=== PATIENT | male | born 1965 | race African-American/Black ===

== ENCOUNTER 2018-08-08 01:48 | Emergency (ER) | payer MEDICAID ==
[~2018-08-08] VITALS: Ht 182.9 cm; Wt 87.1 kg
[~2018-08-08 01:48] MED LIST: CLINDAMYCIN HC150 MG ORAL; IBUPROFEN600 MG ORAL
[2018-08-08] MEDS ORDERED: NKM (02:04)
[2018-08-08 02:05] VITALS: BP 124/70
[2018-08-08] MEDS ORDERED: Ipratropium 0.02% Inh Soln 2.5ml UD HHN ONE (02:15)
[2018-08-08] MEDS ORDERED: Albuterol ud Inhalation HHN ONE (02:15)
[2018-08-08] MEDS ORDERED: ZITHROMAX250 MG ORAL (03:34)
[2018-08-08] MEDS ORDERED: PROMETHAZINE-C118 M1 ORAL (03:34)
[2018-08-08] MEDS ORDERED: ALBUTEROL SULF8.5 GM INH (03:34)
[2018-08-08 03:40] VITALS: BP 124/70
--- NOTE | 2018-08-08 04:12 | Emergency Room Report ---
History of Present Illness General Chief Complaint: Dyspnea/Respdistress Source: Patient Present Illness HPI 52-year-old male presents ED for evaluation. Patient states that he may have pneumonia. Complaining of cough and congestion for 2 weeks. States that symptoms started after he was working in the rain. States was very cold that day. Had a persistent cough since then. Dry. Trouble with deep breaths. Denies smoking or asthma. Denies sick contacts or recent travel. No other aggravating relieving factors. Denies any other associated symptoms Allergies: Coded Allergies: PENICILLINS (Unverified Allergy, Unknown, 01/28/15) Patient History Past Medical History: none Past Surgical History: none Pertinent Family History: none Social History: Denies: smoking, alcohol use, drug use Immunizations: UTD Reviewed Nursing Documentation: PMH: Agreed; PSxH: Agreed Nursing Documentation-PMH Past Medical History: No Stated History Review of Systems All Other Systems: negative except mentioned in HPI Physical Exam Vital Signs Date Time Temp Pulse Resp B/P (MAP) Pulse Ox O2 Delivery O2 Flow Rate FiO2 08/08/18 01:58 98.8 88 20 124/70 96 Room Air 08/08/18 02:21 21 Sp02 EP Interpretation: reviewed, normal General Appearance: no apparent distress, alert, GCS 15, non-toxic Head: normocephalic Eyes: bilateral eye normal inspection, bilateral eye PERRL ENT: normal ENT inspection Neck: normal inspection Respiratory: decreased breath sounds, crackles Cardiovascular #1: regular rate, rhythm, no edema Gastrointestinal: normal inspection Rectal: deferred Genitourinary: no CVA tenderness Musculoskeletal: normal inspection Neurologic: alert, oriented x3, responsive, motor strength/tone normal, sensory intact, speech normal Psychiatric: normal inspection Skin: normal inspection Lymphatic: normal inspection Medical Decision Making Diagnostic Impression: Primary Impression: Atypical pneumonia ER Course Hospital Course 52-year-old male presents ED complaining of cough x 2 weeks Differential diagnoses include: URI, pharyngitis, otitis media, asthma Clinical course Patient placed on stretcher. After initial history, physical exam reveals a male in no acute distress. Bilateral TM unremarkable. No pharyngeal erythema. No tonsillar exudates. No lymphadenopathy. decreased breath sounds bilaterally I ordered chest x-ray, breathing treatments Chest x-ray shows some atelectasis in lower lung álvarez. No definitive consolidation. Patient feels better after nebulized treatments Presentation consistent with atypical pneumonia. Given presentation, i will prescribe Zpack (allergy to PCN) Safe for discharge and close outpatient follow-up. Patient has his PMD Diagnosis - atypical pneumonia Stable and discharged home with Rx Zpack, albuterol, promethazine/codeine. Instructed to followup with PMD. Return to ED if symptoms recur or worsen Chest X-Ray Diagnostic Results Chest X-Ray Diagnostic Results : Chest X-Ray Ordered: Yes # of Views/Limited/Complete: 1 View Indication: Shortness of Breath EP Interpretation: Yes Interpretation: no consolidation, no pneumothorax, other - bilateral atelectasis Impression: Other - atelectasis Electronically Signed by: Electronically signed by Collin Walters MD Last Vital Signs Date Time Temp Pulse Resp B/P (MAP) Pulse Ox O2 Delivery O2 Flow Rate FiO2 08/08/18 02:44 78 14 100 Room Air 21 08/08/18 02:05 98.7 124/70 Status: improved Disposition: HOME, SELF-CARE Condition: Stable Scripts Codeine/Promethazine Hcl* (PROMETHAZINE-CODEINE SYRUP*) 118 Ml Syrup 5 ML ORAL Q6H PRN for For Cough, #118 ML 0 Refills Prov: Collin Walters MD 08/08/18 Albuterol Sulfate* (ALBUTEROL SULFATE MDI*) 8.5 Gm Hfa.aer.ad 2 PUFF INH Q6H, #1 EA 0 Refills Prov: Collin Walters MD 08/08/18 Azithromycin* (ZITHROMAX*) 250 Mg Tablet 250 MG ORAL DAILY, #6 TAB 0 Refills Take two tables once daily for 1 day, then one tablet once daily for 4 days. Prov: Collin Walters MD 08/08/18 Patient Instructions: Community-Acquired Pneumonia, Adult, [id number] Collin Walters MD Aug 08, 2018 04:12
--- NOTE | 2018-08-08 09:57 | Diagnostic Imaging Report ---
Indication: Cough Technique: One view of the chest Comparison: none Findings: Lungs and pleural spaces are clear. Heart size is normal Impression: No acute process
== END 2018-08-08 03:40 | disposition home or self-care (01) ==
LOC: EMR 02:15
DX: J18.9 Pneumonia, unspecified organism (principal); Z88.0 Allergy status to penicillin
CPT/HCPCS: 71045; 94640; 94664; 99284; J7512

== ENCOUNTER 2019-10-19 00:35 | Emergency (ER) | payer SELFPAY ==
[~2019-10-19] VITALS: Ht 182.9 cm; Wt 87.1 kg
[~2019-10-19 00:35] MED LIST changes: +ALBUTEROL SULF8.5 GM INH; +NKM; +PREDNISONE20 MG ORAL; +PROMETHAZINE-C118 M1 ORAL; +ZITHROMAX250 MG ORAL
[2019-10-19 01:00] VITALS: BP 116/68
--- NOTE | 2019-10-19 01:00 | NUR ---
ED Nurse Note: Pt walked into ED from home for c/o cough and fever x 2 weeks. Pt states cough is now productive with blood and temp of 103.3F noted upon ED triage. Pt is aaox4, breathing is normal and unlabored, no cardiac distress noted.
--- NOTE | 2019-10-19 01:05 | NUR ---
ED Nurse Note: Pt also reports sharp pain in throat associated with cough.
[2019-10-19] MEDS ORDERED: ZITHROMAX250 MG ORAL (01:08)
[2019-10-19] MEDS ORDERED: IBUPROFEN600 MG ORAL (01:08)
[2019-10-19] MEDS ORDERED: PROMETHAZINE-C118 M1 ORAL (01:08)
[2019-10-19 01:15] VITALS: BP 120/85
[2019-10-19] MEDS ORDERED: Azithromycin 250mg tab ORAL ONE (01:15)
--- NOTE | 2019-10-19 01:15 | NUR ---
ER DISCHARGE NOTE: Patient is cleared to be discharged per ERMD, pt is aox4, on room air, with stable vital signs. pt was given dc and prescription instructions, pt was able to verbalize understanding, pt id band removed. pt is able to ambulate with steady gait. pt took all belongings.
--- NOTE | 2019-10-19 02:56 | Emergency Room Report ---
History of Present Illness General Chief Complaint: Fever Source: Patient Present Illness HPI 53-year-old male presents ED for evaluation of cough. States he has had a cough for the last 2 weeks. Productive with greenish phlegm. Notes blood- tinged sputum. Febrile in triage. States that he has been having the symptoms for the last 2 weeks and they have not been resolving with [id number]-zsm-xaazjka medications. States his son has similar symptoms but his symptoms are resolving. Denies recent travel. Vaccinations up-to-date. No other aggravating relieving factors. Denies any other associated symptoms Allergies: Coded Allergies: PENICILLINS (Unverified Allergy, Unknown, 01/28/15) Patient History Past Medical History: none Past Surgical History: none Pertinent Family History: none Social History: Denies: smoking, alcohol use, drug use Immunizations: UTD Reviewed Nursing Documentation: PMH: Agreed; PSxH: Agreed Nursing Documentation-PMH Past Medical History: No Stated History Review of Systems All Other Systems: negative except mentioned in HPI Physical Exam Vital Signs Date Time Temp Pulse Resp B/P (MAP) Pulse Ox O2 Delivery O2 Flow Rate FiO2 10/19/19 00:52 103.3 103 26 116/68 (84) 92 Room Air Sp02 EP Interpretation: reviewed, normal General Appearance: no apparent distress, alert, GCS 15, non-toxic Head: normocephalic, atraumatic Eyes: bilateral eye normal inspection, bilateral eye PERRL ENT: hearing grossly normal, normal pharynx, no angioedema, normal voice Neck: full range of motion, supple/symm/no masses Respiratory: chest non-tender, crackles, speaking full sentences Cardiovascular #1: regular rate, rhythm, no edema Cardiovascular #2: 2+ carotid (R), 2+ carotid (L), 2+ radial (R), 2+ radial (L) , 2+ dorsalis pedis (R), 2+ dorsalis pedis (L) Gastrointestinal: normal bowel sounds, non tender, soft, non-distended, no guarding, no rebound Rectal: deferred Genitourinary: normal inspection, no CVA tenderness Musculoskeletal: back normal, normal range of motion, gait/station normal, non- tender Neurologic: alert, motor strength/tone normal, oriented x3, sensory intact, responsive, speech normal Psychiatric: judgement/insight normal, memory normal, mood/affect normal, no suicidal/homicidal ideation Reflexes: 3+ bicep (R), 3+ bicep (L), 3+ tricep (R), 3+ tricep (L), 3+ knee (R) , 3+ knee (L) Skin: no rash Lymphatic: no adenopathy Medical Decision Making Diagnostic Impression: Primary Impression: Pneumonia Qualified Codes: J18.9 - Pneumonia, unspecified organism ER Course Hospital Course 53-year-old male presents ED complaining of fever and cough x2 weeks Differential diagnoses include: URI, pharyngitis, otitis media, asthma Clinical course Patient placed on stretcher. After initial history, physical exam reveals a male in no acute distress. Bilateral TM unremarkable. No pharyngeal erythema. No tonsillar exudates. No lymphadenopathy. crackles on lung exam vitalsl stable. Patient appears nontoxic. I discussed findings with patient. Concerning for pneumonia. Will discharge with antibiotics. Given Motrin in ED. Safe for discharge for close outpatient follow-up. States he has a PMD Diagnosis - pneumonia Stable and discharged home with Rx Zpack, motrin, promethazine/codeine. Instructed to followup with PMD. Return to ED if symptoms recur or worsen Last Vital Signs Date Time Temp Pulse Resp B/P (MAP) Pulse Ox O2 Delivery O2 Flow Rate FiO2 10/19/19 01:15 103.3 100 22 120/85 95 Room Air Status: improved Disposition: HOME, SELF-CARE Condition: Stable Scripts Ibuprofen* (MOTRIN*) 600 Mg Tablet 600 MG ORAL Q8H PRN for For Pain, #30 TAB 0 Refills Prov: Collin Walters MD 10/19/19 Codeine/Promethazine Hcl* (PROMETHAZINE-CODEINE SYRUP*) 118 Ml Syrup 5 ML ORAL Q6H PRN for For Cough, #118 ML 0 Refills Prov: Collin Walters MD 10/19/19 Azithromycin* (ZITHROMAX*) 250 Mg Tablet 250 MG ORAL DAILY, #6 TAB 0 Refills Take two tables once daily for 1 day, then one tablet once daily for 4 days. Prov: Collin Walters MD 10/19/19 Referrals: [facility] Patient Instructions: Community-Acquired Pneumonia, Adult, [id number] Collin Walters MD Oct 19, 2019 02:56
== END 2019-10-19 01:15 | disposition home or self-care (01) ==
LOC: EMR 01:10
DX: J18.9 Pneumonia, unspecified organism (principal); Z88.0 Allergy status to penicillin
CPT/HCPCS: 99282